=== PATIENT | male | born 1985 | race Caucasian/White ===

== ENCOUNTER 2017-08-05 14:00 | Emergency (ER) | payer MEDICAID ==
[~2017-08-05 14:00] MED LIST: CIPRO750 MG PO; FLA500 PO; MOTRIN800 MG PO
[2017-08-05 17:09] VITALS: BP 132/64
== END 2017-08-05 17:10 | disposition home or self-care (01) ==
LOC: ED 14:00
DX: K64.4 Residual hemorrhoidal skin tags (principal); K60.2 Anal fissure, unspecified; F17.210 Nicotine dependence, cigarettes, uncomplicated; Z71.6 Tobacco abuse counseling
CPT/HCPCS: 99406

== ENCOUNTER 2019-01-14 13:08 | Emergency (ER) | payer MEDICAID ==
[~2019-01-14] VITALS: Ht 167.6 cm; Wt 115.9 kg
[2019-01-14 13:58] VITALS: BP 139/90; Ht 167.6 cm; Wt 115.9 kg
== END 2019-01-14 17:27 | disposition home or self-care (01) ==
LOC: ED 13:08
DX: K42.9 Umbilical hernia without obstruction or gangrene (principal); Z90.49 Acquired absence of other specified parts of digestive tract; Z98.890 Other specified postprocedural states